=== PATIENT | female | born 1940 | race Caucasian/White ===

== ENCOUNTER 2016-07-01 15:29 | Inpatient (IN) | payer OTHER ==
[~2016-07-01] VITALS: Ht 165.1 cm; Wt 101.6 kg
[~2016-07-01 15:29] MED LIST: ASCORBIC ACID500 M3 PO; ATORVASTATIN CA80 MG PO; CITALOPRAM HBR20 MG PO; CLOPIDOGREL75 MG PO; CYANOCOBALAM1000 MCG PO; FLORASTOR250 MG PO; FOLIC ACID1 MG PO; FUROSEMIDE20 MG PO; LEVEMIR FL100 UNIT/1 SC; LOPRESSOR25 MG PO; LORATADINE10 M2 PO; MYRBETRIQ50 MG PO; NIFEREX-1501 CAPSULE PO; NOVOLOG PE100 UNITS/ SC; PANTOPRAZOLE SO40 MG PO; RAMIPRIL10 MG PO; VITAMIN E200 UNI2 PO
[2016-07-02 14:00] VITALS: BP 137/69
[2016-07-02] MEDS ORDERED: FUROSEMIDE20 MG PO (15:26)
[2016-07-02] MEDS ORDERED: DEXTROSE 50%50 ML IV (15:45)
[2016-07-02] MEDS ORDERED: GLUCOSE GEL15 GM PO (15:46)
[2016-07-02] MEDS ORDERED: GLUCAGON HCL1 MG IM (15:48)
[2016-07-02] MEDS ORDERED: ZOFRAN4 MG PO (15:52)
[2016-07-02] MEDS ORDERED: AMBIEN5 MG PO (15:54)
[2016-07-02] MEDS ORDERED: TYLENOL REGULA325 MG PO (15:57)
[2016-07-02] MEDS ORDERED: FEOSOL325 MG PO (16:00)
[2016-07-02] MEDS ORDERED: LO-DOSE ASPIRIN81 M1 PO (16:01)
[2016-07-02] MEDS ORDERED: DULCOLAX5 MG PO (16:03)
[2016-07-02] MEDS ORDERED: HEPARIN SO5000 UNITS SC (16:04)
[2016-07-02] MEDS ORDERED: GLUCOPHAGE500 MG PO (16:07)
[2016-07-02] MEDS ORDERED: NOVOLOG MI100 UNIT/4 SQ (16:12)
[2016-07-02 16:50] LABS: POINT-OF-CARE METER ID UU13113720
[2016-07-02 16:54] LABS: HEMATOCRIT 41.5 % (36.0-46.0); MCH 30.4 PG (29.0-34.0); MCV 92.2 FL (83-99); MEAN PLAT.VOLUME 11.9 uM^3 (9.5-12.4); PLATELET COUNT 189 K/uL (156-360); RBC DIS.WIDTH-CV 12.9 % (11.8-14.6); RBC DIS.WIDTH-SD 43.4 % (39-53); WHITE BLOOD COUNT 7.2 K/uL (4.1-10.2)
[2016-07-02 17:19] LABS: ALKALINE PHOSPHATASE 91 IU/L (3-129); ANION GAP 8 MEQ/L (2-14); CHLORIDE 102 MEQ/L (99-109); GFR ESTIMATE (CALCULATED) 57 mL/min/; GLUCOSE 64 mg/dL (70-99); POTASSIUM 3.8 MEQ/L (3.7-5.4); SAMPLE HEMOLYSIS CHECK 1; SAMPLE ICTERIC CHECK 0; SAMPLE LIPEMIA CHECK 1; SODIUM 139 MEQ/L (136-147); TOTAL BILIRUBIN 0.4 MG/DL (0.0-1.0); UREA NITROGEN (BUN) 15 mg/dL (9-23)
[2016-07-02 21:22] LABS: POINT-OF-CARE METER ID UU14174215
[2016-07-03] VITALS: BP 139/95
[2016-07-03 04:00] VITALS: BP 122/61
[2016-07-03 07:22] LABS: POINT-OF-CARE METER ID UU14174215
[2016-07-03 11:57] LABS: POINT-OF-CARE METER ID UU13113720; POINT-OF-CARE USER ID AHSSSJB31
[2016-07-03 15:28] VITALS: BP 133/65
[2016-07-03 16:00] LABS: POINT-OF-CARE METER ID UU13113720
[2016-07-03 21:50] LABS: POINT-OF-CARE METER ID UU13113720
[2016-07-04 04:00] VITALS: BP 147/65
[2016-07-04 07:06] LABS: POINT-OF-CARE METER ID UU13113720
[2016-07-04 11:40] LABS: POINT-OF-CARE METER ID UU13113720
[2016-07-04 15:55] VITALS: BP 147/65
[2016-07-04 16:49] LABS: POINT-OF-CARE METER ID UU13113720
[2016-07-04 21:23] LABS: POINT-OF-CARE METER ID UU13113720; POINT-OF-CARE USER ID 610211320
[2016-07-05 05:06] VITALS: BP 128/58
[2016-07-05 07:09] LABS: Estimated Average Glucose 220 mg/dL (70-123); HEMOGLOBIN A1c (GLYCOHEMOGLOB) 9.3 % HGB (Below 5.7)
[2016-07-05 07:13] LABS: POINT-OF-CARE METER ID UU13113720
[2016-07-05 11:50] LABS: POINT-OF-CARE METER ID UU13113720
[2016-07-05 15:21] VITALS: BP 129/62
[2016-07-05 16:27] LABS: POINT-OF-CARE METER ID UU13113720
[2016-07-05 21:47] LABS: POINT-OF-CARE METER ID UU13113720
[2016-07-06 05:12] VITALS: BP 158/68
[2016-07-06 07:35] LABS: POINT-OF-CARE METER ID UU14174215
[2016-07-06 11:51] LABS: POINT-OF-CARE METER ID UU14174215
[2016-07-06 15:53] VITALS: BP 126/60
[2016-07-06 16:13] LABS: POINT-OF-CARE METER ID UU14174215
[2016-07-06 21:10] LABS: POINT-OF-CARE METER ID UU13113720
[2016-07-07 04:56] VITALS: BP 142/65
[2016-07-07 07:33] LABS: POINT-OF-CARE METER ID UU14174215
[2016-07-07 11:34] LABS: POINT-OF-CARE METER ID UU14174215
[2016-07-07 15:00] VITALS: BP 130/61
[2016-07-07 16:23] LABS: POINT-OF-CARE METER ID UU14174215
[2016-07-07 21:01] LABS: POINT-OF-CARE METER ID UU13113720
[2016-07-08 06:05] VITALS: BP 163/72
[2016-07-08 07:25] LABS: POINT-OF-CARE METER ID UU14174215
[2016-07-08 12:00] LABS: POINT-OF-CARE METER ID UU14174215
[2016-07-08 15:00] VITALS: BP 140/65
[2016-07-08 16:50] LABS: POINT-OF-CARE METER ID UU14174215
[2016-07-08 21:08] LABS: POINT-OF-CARE METER ID UU14174215
[2016-07-09 05:31] VITALS: BP 145/74
[2016-07-09 07:25] LABS: POINT-OF-CARE METER ID UU14174215
[2016-07-09 11:11] LABS: POINT-OF-CARE METER ID UU14174215
[2016-07-09 15:13] VITALS: BP 128/70
[2016-07-09 16:33] LABS: POINT-OF-CARE METER ID UU13113720
[2016-07-09 20:59] LABS: POINT-OF-CARE METER ID UU13113720
[2016-07-10 05:14] VITALS: BP 144/62
[2016-07-10 07:16] LABS: POINT-OF-CARE METER ID UU13113720
[2016-07-10 11:32] LABS: POINT-OF-CARE METER ID UU13113720
[2016-07-10 15:18] VITALS: BP 139/70
[2016-07-10 16:21] LABS: POINT-OF-CARE METER ID UU13113712
[2016-07-10 20:59] LABS: POINT-OF-CARE METER ID UU13113720
[2016-07-11 05:02] VITALS: BP 147/71
[2016-07-11 07:51] LABS: POINT-OF-CARE METER ID UU13113720
[2016-07-11 12:14] LABS: POINT-OF-CARE METER ID UU13113720
[2016-07-11 15:42] VITALS: BP 123/70
[2016-07-11 16:49] LABS: POINT-OF-CARE METER ID UU13113720
[2016-07-11 21:41] LABS: POINT-OF-CARE METER ID UU13113720
[2016-07-12 05:00] VITALS: BP 131/63
[2016-07-12 07:20] LABS: POINT-OF-CARE METER ID UU13113720
[2016-07-12 11:07] LABS: POINT-OF-CARE METER ID UU13113720
[2016-07-12 15:10] VITALS: BP 144/64
[2016-07-12 16:29] LABS: POINT-OF-CARE METER ID UU13113720
[2016-07-12 21:37] LABS: POINT-OF-CARE METER ID UU13113712
[2016-07-13 05:21] VITALS: BP 169/74
[2016-07-13 06:57] LABS: POINT-OF-CARE METER ID UU13113712; POINT-OF-CARE USER ID ENVGAF
[2016-07-13 11:39] LABS: POINT-OF-CARE METER ID UU13113712; POINT-OF-CARE USER ID ENVGAF
[2016-07-13 15:17] VITALS: BP 137/67
[2016-07-13 16:37] LABS: POINT-OF-CARE METER ID UU13113720
[2016-07-13 21:06] LABS: POINT-OF-CARE METER ID UU13113720
[2016-07-14 05:49] VITALS: BP 148/73
[2016-07-14 07:06] LABS: POINT-OF-CARE METER ID UU13113712; POINT-OF-CARE USER ID ENVGAF
[2016-07-14 11:30] LABS: POINT-OF-CARE METER ID UU13113720
[2016-07-14 15:23] VITALS: BP 139/72
[2016-07-14 16:45] LABS: POINT-OF-CARE METER ID UU13113720
[2016-07-14 21:16] LABS: POINT-OF-CARE METER ID UU13113712
[2016-07-15 05:42] VITALS: BP 139/70
[2016-07-15 07:31] LABS: POINT-OF-CARE METER ID UU13113720; POINT-OF-CARE USER ID AHSSSJB31
[2016-07-15 11:24] LABS: POINT-OF-CARE METER ID UU13113720; POINT-OF-CARE USER ID AHSSSJB31
[2016-07-15 16:02] VITALS: BP 166/75
[2016-07-15 16:37] LABS: POINT-OF-CARE METER ID UU13113712; POINT-OF-CARE USER ID AHSSSJB31
[2016-07-15 21:03] LABS: POINT-OF-CARE METER ID UU13113712
[2016-07-16 05:00] VITALS: BP 154/69
[2016-07-16 05:52] LABS: HEMATOCRIT 42.8 % (36.0-46.0); MCHC 31.8 G/DL (30.0-36.0); MCV 94.3 FL (83-99); MEAN PLAT.VOLUME 12.4 uM^3 (9.5-12.4); PLATELET COUNT 167 K/uL (156-360); RBC DIS.WIDTH-CV 12.8 % (11.8-14.6); RBC DIS.WIDTH-SD 44.1 % (39-53); RED BLOOD COUNT 4.54 M/uL (3.80-5.20); WHITE BLOOD COUNT 5.8 K/uL (4.1-10.2)
[2016-07-16 06:20] LABS: ALKALINE PHOSPHATASE 102 IU/L (3-129); ANION GAP 10 MEQ/L (2-14); CHLORIDE 100 MEQ/L (99-109); GFR ESTIMATE (CALCULATED) > 59 mL/min/; GLUCOSE 256 mg/dL (70-99); POTASSIUM 4.4 MEQ/L (3.7-5.4); SAMPLE HEMOLYSIS CHECK 0; SAMPLE ICTERIC CHECK 0; SAMPLE LIPEMIA CHECK 0; SODIUM 138 MEQ/L (136-147); TOTAL BILIRUBIN 0.5 MG/DL (0.0-1.0); UREA NITROGEN (BUN) 18 mg/dL (9-23)
[2016-07-16 07:52] LABS: POINT-OF-CARE METER ID UU13113720; POINT-OF-CARE USER ID AHSSSJB31
[2016-07-16 11:53] LABS: POINT-OF-CARE METER ID UU13113720; POINT-OF-CARE USER ID AHSSSJB31
[2016-07-16 15:39] VITALS: BP 150/62
[2016-07-16 16:38] LABS: POINT-OF-CARE METER ID UU14174215
[2016-07-16] MEDS ORDERED: FOLIC ACID1 MG PO (20:21)
[2016-07-16] MEDS ORDERED: ATORVASTATIN CA80 MG PO (20:21)
[2016-07-16] MEDS ORDERED: LOPRESSOR25 MG PO (20:21)
[2016-07-16] MEDS ORDERED: VITAMIN D-32000 UNI2 PO (20:21)
[2016-07-16] MEDS ORDERED: NIFEREX-1501 CAPSULE PO (20:21)
[2016-07-16] MEDS ORDERED: CLOPIDOGREL75 MG PO (20:21)
[2016-07-16] MEDS ORDERED: PANTOPRAZOLE SO40 MG PO (20:21)
[2016-07-16] MEDS ORDERED: NovoLOG Mix 70/30 Vi SC (20:21)
[2016-07-16] MEDS ORDERED: BACTROBAN OINTM22 GM TP (20:43)
[2016-07-16 21:35] LABS: POINT-OF-CARE METER ID UU14174215
[2016-07-17 04:53] VITALS: BP 145/72
[2016-07-17 07:03] LABS: POINT-OF-CARE METER ID UU14174215
[2016-07-17 11:05] LABS: POINT-OF-CARE METER ID UU14174215
== END 2016-07-17 14:00 | disposition home health service (06) | DRG 945 ==
LOC: 3WEST 15:29
PROVIDERS: Internal Medicine; Physical Medicine & Rehabilitation Pain Medicine; Psychiatry & Neurology Neurology
PROC: F07M0ZZ Range of Motion and Joint Mobility Treatment of Musculoskeletal System - Whole Body (ICD-10-PCS; principal; 2016-07-02)
DX: R53.1 Weakness (principal); I63.9 Cerebral infarction, unspecified; E11.65 Type 2 diabetes mellitus with hyperglycemia; R55 Syncope and collapse; S91.301D Unspecified open wound, right foot, subsequent encounter; I73.9 Peripheral vascular disease, unspecified; G62.9 Polyneuropathy, unspecified; I10 Essential (primary) hypertension; E78.5 Hyperlipidemia, unspecified; K21.9 Gastro-esophageal reflux disease without esophagitis; Z86.73 Personal history of transient ischemic attack (TIA), and cerebral infarction without residual deficits; F41.9 Anxiety disorder, unspecified; Z89.612 Acquired absence of left leg above knee; R32 Unspecified urinary incontinence; Z89.421 Acquired absence of other right toe(s); Z79.4 Long term (current) use of insulin; D64.9 Anemia, unspecified; R00.0 Tachycardia, unspecified; R25.2 Cramp and spasm
CPT/HCPCS: 80053; 82306; 82607; 82746; 82948; 83036; 84443; 85027; 92523 GN; 92610 GN; 94660; 97110 GO; 97530 GP; J1644; J1815